=== PATIENT | female | born 1950 | race Caucasian/White ===

== ENCOUNTER 2024-04-04 08:05 | Emergency (ER) | payer MEDICARE, MEDICAID ==
[~2024-04-04] VITALS: Ht 152.4 cm; Wt 64.7 kg
[2024-04-04 08:10] VITALS: O2SAT 97
[2024-04-04 08:59] LABS: BASOPHILS % 0.4 % (0.0-2.0); EOSINOPHILS % 0.5 % (0.0-5.0); HEMATOCRIT. 37.3 % (36.0-48.0); HEMOGLOBIN. 12.2 g/dL (12.0-16.0); MEAN CORPUSCULAR HEMOGLOBIN 29.2 pg (28.0-32.0); MEAN CORPUSCULAR HGB CONC 32.8 g/dL (31.0-37.0); MEAN CORPUSCULAR VOLUME 89.1 fL (81.0-99.0); MEAN PLATELET VOLUME 8.6 fl (7.4-10.4); MONOCYTES % 6.6 % (2.0-8.0); NEUTROPHILS % 60.5 % (40.0-76.0); PLATELET 337 x1000/uL (130-400); RED BLOOD CELL COUNT 4.18 mill/uL (4.2-5.4); RED CELL DISTRIBUTION WIDTH 13.4 % (11.6-14.6); WHITE BLOOD COUNT 9.6 x1000/uL (4.5-11.0)
[2024-04-04 09:03] LABS: CHLORIDE 106 mEq/L (98-107); POTASSIUM 4.4 mEq/L (3.5-5.1); SODIUM 139 mEq/L (136-145)
[2024-04-04 09:04] LABS: CALCIUM 11.6 mg/dL (8.7-10.4); CARBON DIOXIDE 26 mEq/L (21-32)
[2024-04-04 09:08] LABS: INR 0.9; PROTHROMBIN TIME 10.6 sec (9.6-11.0)
[2024-04-04 09:09] LABS: CREATININE 1.5 mg/dL (0.6-1.0); GLUCOSE 127 mg/dL (70-105); UREA NITROGEN BLOOD 35 mg/dL (9-23)
[2024-04-04 09:11] LABS: ALANINE AMINOTRANSFERASE 10 IU/L (10-49); ALBUMIN 4.7 g/dL (3.2-4.8); ASPARTATE AMINOTRANSFERASE 17 IU/L (<34); BILIRUBIN DIRECT 0.3 mg/dL (<=3.0); BILIRUBIN TOTAL 1.2 mg/dL (0.1-1.0); PROTEIN TOTAL 7.9 g/dL (6.0-8.3)
[2024-04-04 09:23] VITALS: BP 116/92; PULSE 82; RESP 16; TEMP 98.6
[2024-04-04] MEDS: ACETAMINOPHEN 325MG TABLET PO STA (09:23)
[2024-04-04] MEDS: IBUPROFEN 600MG TABLET PO STA (09:23)
[2024-04-04] MEDS: ONDANSETRON 4MG ODT PO STA (09:24)
[2024-04-04 09:41] LABS: CLARITY URINE CLOUDY (CLEAR); COLOR URINE YELLOW (YELLOW); GLUCOSE URINE NEGATIVE (NEGATIVE); KETONES URINE NEGATIVE (NEGATIVE); LEUKOCYTE ESTERASE URINE 3+ (NEGATIVE); NITRITE URINE POSITIVE (NEGATIVE); OCCULT BLOOD URINE NEGATIVE (NEGATIVE); PROTEIN URINE TRACE (NEGATIVE); SPECIFIC GRAVITY URINE 1.013 (1.005-1.030)
[2024-04-04 11:19] LABS: SQUAMOUS EPITHELIAL CELL URINE 2+ /lpf (RARE/1+); TRIPLE PHOSPHATE CRYSTAL URINE 1+ /lpf
[2024-04-04 11:20] LABS: BACTERIA URINE 4+
[2024-04-04 11:21] LABS: WBC URINE 25-50 /hpf (0-2)
[2024-04-04 11:22] LABS: RBC URINE NONE SEEN /hpf (0-2)
[2024-04-04] MEDS ORDERED: CEPH500C2 MT (11:54)
[2024-04-04] MEDS: CEFTRIAXONE SODIUM 1G VIAL IM NR (11:54)
[2024-04-04] MEDS ORDERED: ACET-2708 MT (11:59)
== END 2024-04-04 12:13 | disposition home or self-care (01) ==
LOC: ER 08:05
DX: N12 Tubulo-interstitial nephritis, not specified as acute or chronic (principal); N28.9 Disorder of kidney and ureter, unspecified; E11.9 Type 2 diabetes mellitus without complications; I10 Essential (primary) hypertension; Z87.19 Personal history of other diseases of the digestive system
CPT/HCPCS: 80076; 80048; 81003; 83690; 85025; 85610; 87086; 87186; 87077; 36415; 74176; 96372; 99285; Q0162; J0696; Z7610

== ENCOUNTER 2024-06-11 07:27 | Emergency (ER) | payer MEDICARE, MEDICAID ==
[~2024-06-11] VITALS: Ht 167.6 cm; Wt 69.0 kg
[~2024-06-11 07:27] MED LIST: ACET-2708 MT; CEPH500C2 MT
[2024-06-11 07:31] VITALS: TEMP 98.9; O2SAT 99
[2024-06-11 09:21] LABS: BASOPHILS % 0.3 % (0.0-2.0); EOSINOPHILS % 0.8 % (0.0-5.0); LYMPHOCYTES % 34.1 % (20.0-50.0); MEAN CORPUSCULAR HEMOGLOBIN 28.6 pg (28.0-32.0); MEAN CORPUSCULAR HGB CONC 31.7 g/dL (31.0-37.0); MEAN CORPUSCULAR VOLUME 90.1 fL (81.0-99.0); MEAN PLATELET VOLUME 8.4 fl (7.4-10.4); NEUTROPHILS % 59.8 % (40.0-76.0); PLATELET 342 x1000/uL (130-400); RED BLOOD CELL COUNT 4.22 mill/uL (4.2-5.4); RED CELL DISTRIBUTION WIDTH 12.9 % (11.6-14.6); WHITE BLOOD COUNT 8.8 x1000/uL (4.5-11.0)
[2024-06-11 09:28] LABS: CARBON DIOXIDE 25 mEq/L (21-32); CHLORIDE 108 mEq/L (98-107); POTASSIUM 4.3 mEq/L (3.5-5.1); SODIUM 140 mEq/L (136-145)
[2024-06-11 09:33] LABS: CREATININE 1.3 mg/dL (0.6-1.0)
[2024-06-11 09:34] LABS: GLUCOSE 221 mg/dL (70-105); UREA NITROGEN BLOOD 23 mg/dL (9-23)
[2024-06-11 09:35] LABS: ALANINE AMINOTRANSFERASE 32 IU/L (10-49); ALBUMIN 4.2 g/dL (3.2-4.8); ASPARTATE AMINOTRANSFERASE 27 IU/L (<34)
[2024-06-11 09:36] LABS: BILIRUBIN DIRECT 0.1 mg/dL (<=3.0); BILIRUBIN TOTAL 0.7 mg/dL (0.1-1.0); PROTEIN TOTAL 7.3 g/dL (6.0-8.3)
[2024-06-11 10:18] LABS: GLUCOSE URINE NEGATIVE (NEGATIVE); KETONES URINE NEGATIVE (NEGATIVE)
[2024-06-11 10:42] LABS: COLOR URINE YELLOW (YELLOW); PH URINE 7.5 (4.5-8.0); SPECIFIC GRAVITY URINE 1.017 (1.005-1.030)
[2024-06-11 10:43] LABS: NITRITE URINE POSITIVE (NEGATIVE); OCCULT BLOOD URINE NEGATIVE (NEGATIVE); PROTEIN URINE 1+ (NEGATIVE); UROBILINOGEN URINE 0.2 E.U./dL (0.2-1.0)
[2024-06-11 10:44] LABS: LEUKOCYTE ESTERASE URINE 2+ (NEGATIVE)
[2024-06-11 10:47] LABS: SQUAMOUS EPITHELIAL CELL URINE 1+ /lpf (RARE/1+)
[2024-06-11 10:48] LABS: BACTERIA URINE 4+; RBC URINE 0-2 /hpf (0-2); WBC URINE 25-50 /hpf (0-2)
[2024-06-11 10:49] LABS: CLARITY URINE CLOUDY (CLEAR); YEAST URINE NONE SEEN
[2024-06-11] MEDS ORDERED: CEFP200T13 MT (10:59)
[2024-06-11] MEDS ORDERED: IBUP-2029 MT (11:00)
[2024-06-11 11:07] VITALS: BP 130/76; PULSE 72; RESP 16; O2SAT 99
[2024-06-11] MEDS: IBUPROFEN 600MG TABLET PO ONE (11:07)
[2024-06-11] MEDS ORDERED: CEFTRIAXONE 1GM/50ML 50 ML IV ONE (12:15)
== END 2024-06-11 11:08 | disposition home or self-care (01) ==
LOC: ER 07:27
DX: N13.6 Pyonephrosis (principal); I10 Essential (primary) hypertension; E11.9 Type 2 diabetes mellitus without complications
CPT/HCPCS: 36415; 74176; 80048; 80076; 81003; 85025; 87077; 87186; 99284